=== PATIENT | female | born 1945 | race Caucasian/White ===

== ENCOUNTER 2016-05-26 17:11 | Inpatient (IN) | payer MEDICARE, OTHER ==
[~2016-05-26] VITALS: Ht 162.6 cm; Wt 93.4 kg
[~2016-05-26 17:11] MED LIST: CITA10TA59 PO; GABA300C8 PO; LEV50T PO; PRE5T PO
[2016-05-26 18:12] LABS: Basophils # (auto) 0 uL; Basophils % (auto) 0.4 % (0.0-2.0); Eosinophils # (auto) 0.1 uL; Eosinophils % (auto) 0.7 % (0.0-7.0); Hemoglobin 14.6 g/dL (12.2-16.2); Lymphocytes # (auto) 2.3 uL; Lymphocytes % (auto) 26.4 % (10.0-50.0); Mean Corpuscular Hemoglobin 28.1 pg (28.0-32.0); Mean Corpuscular Hgb Conc. 32.4 g/dL (32.0-36.0); Mean Corpuscular Volume 86.8 fL (80.0-100.0); Mean Platelet Volume 8.5 fL (7.4-10.4); Monocytes % (auto) 11.7 % (0.0-12.0); Neutrophils # (auto) 5.2 uL; Neutrophils % (auto) 60.8 % (37.0-80.0); Platelet Count (auto) 247 10^3/uL (140-450); White Blood Cell 8.6 10^3/uL (4.4-10.8)
[2016-05-26 18:26] LABS: Albumin 3.1 g/dL (3.4-5.0); BUN/Creatinine Ratio 16.7; Bilirubin, Total 0.3 mg/dL (0.2-1.0); Calcium 8.4 mg/dL (8.5-10.1); Total Protein 6.6 g/dL (6.4-8.2)
[2016-05-26] MEDS ORDERED: ALBUTEROL SULF 2.5 MG/0.5ML(0.5%) NEB SOLN NEB STA (18:58)
[2016-05-26] MEDS ORDERED: IPRATROPIUM BROM 0.5 MG/2.5ML INH SOL NEB ONE (19:00)
[2016-05-26] MEDS ORDERED: methylPREDNISolone SOD SUCC 125 MG/2 ML VL IV ONE (19:00)
[2016-05-26] MEDS ORDERED: cefTRIAXone 1GM/50ML D5W 50 ML IV ONE ×2 (19:00→21:15)
[2016-05-26] MEDS ORDERED: DILTIAZEM HCL 25 MG/5 ML VIAL IV ONE (19:15)
[2016-05-26 20:46] LABS: B-Type Natriuretic Peptide 178.41 pg/mL (0-100); Temperature: 22.9 C (20.0-25.0)
[2016-05-26] MEDS ORDERED: DILTIAZEM HCL 120MG ER CAP PO ONE (21:15)
[2016-05-26] MEDS ORDERED: MORPHINE SULFATE 4 MG/ML SYRG IV PRN (21:15)
[2016-05-26] MEDS ORDERED: ONDANSETRON HCL 4 MG/2 ML VIAL IV PRN (21:15)
[2016-05-26] MEDS ORDERED: LACTULOSE 20Gm/30ML SOLN PO PRN (21:15)
[2016-05-26] MEDS ORDERED: DEXTROSE (50%) 50ML SYRG IV PRN (21:15)
[2016-05-26] MEDS ORDERED: POTASSIUM CHL 20 Meq TABLET PO ONE (21:45)
[2016-05-26] MEDS: METOPROLOL TARTRATE 50 MG TAB PO SCH (22:00)
[2016-05-26] MEDS: PRAMIPEXOLE DIHYDROCHLORIDE MO 0.25 MG TAB PO SCH (22:00)
[2016-05-26] MEDS: SUCRALFATE 1 GM TAB PO SCH (22:00)
[2016-05-26] MEDS: DABIGATRAN 75 MG CAP PO SCH (22:00)
[2016-05-26] MEDS: ALBUTEROL SULF 2.5 MG/0.5ML(0.5%) NEB SOLN NEB SCH (22:45)
[2016-05-26] MEDS: IPRATROPIUM BROM 0.5 MG/2.5ML INH SOL NEB SCH (22:45)
[2016-05-27 01:41] VITALS: BP 130/51
[2016-05-27] MEDS: IPRATROPIUM BROM 0.5 MG/2.5ML INH SOL NEB SCH ×6 (02:30→22:25)
[2016-05-27] MEDS: ALBUTEROL SULF 2.5 MG/0.5ML(0.5%) NEB SOLN NEB SCH ×6 (02:30→22:25)
[2016-05-27 04:22] LABS: Basophils # (auto) 0 uL; Basophils % (auto) 0.2 % (0.0-2.0); Eosinophils # (auto) 0 uL; Hematocrit 42.7 % (36.0-46.0); Hemoglobin 13.8 g/dL (12.2-16.2); Lymphocytes # (auto) 0.6 uL; Lymphocytes % (auto) 7.5 % (10.0-50.0); Mean Corpuscular Hemoglobin 27.9 pg (28.0-32.0); Mean Corpuscular Hgb Conc. 32.2 g/dL (32.0-36.0); Mean Corpuscular Volume 86.6 fL (80.0-100.0); Mean Platelet Volume 8.7 fL (7.4-10.4); Monocytes # (auto) 0.1 uL; Monocytes % (auto) 1.3 % (0.0-12.0); Neutrophils # (auto) 7.4 uL; Platelet Count (auto) 268 10^3/uL (140-450); White Blood Cell 8.2 10^3/uL (4.4-10.8)
[2016-05-27 04:34] LABS: Albumin 2.9 g/dL (3.4-5.0); Potassium 4.9 mmol/L (3.5-5.1)
[2016-05-27 04:45] LABS: Bilirubin, Total 0.4 mg/dL (0.2-1.0)
[2016-05-27 04:51] LABS: Total Protein 6.7 g/dL (6.4-8.2)
[2016-05-27 04:52] LABS: BUN/Creatinine Ratio 18.3
[2016-05-27] MEDS: InsuLIN REG 1unit/0.01ml Soln (100units/ml) SC SCH ×3 (06:00→12:42)
[2016-05-27] MEDS: ACCU-CHEK COMFORT CURVE STRIP VI SCH ×6 (06:00→22:39)
[2016-05-27] MEDS: LEVOTHYROXINE SODIUM 112 MCG TAB PO SCH (07:19)
[2016-05-27] MEDS: SUCRALFATE 1 GM TAB PO SCH ×4 (07:19→22:37)
[2016-05-27] MEDS ORDERED: methylPREDNISolone SOD SUCC 125 MG/2 ML VL IV SCH (08:00)
[2016-05-27] MEDS: METOPROLOL TARTRATE 50 MG TAB PO SCH (10:00)
[2016-05-27] MEDS: DILTIAZEM HCL 120MG ER CAP PO SCH (10:00)
[2016-05-27] MEDS ORDERED: ENOXAPARIN SOD 30 MG/0.3 ML SYRINGE SC SCH (10:00)
[2016-05-27] MEDS ORDERED: PANTOPRAZOLE SODIUM 40 MG/10 ML VIAL IV SCH (10:00)
[2016-05-27] MEDS: DABIGATRAN 75 MG CAP PO SCH ×2 (10:00→22:00)
[2016-05-27] MEDS: CITALOPRAM HYDROBR 20 MG TAB PO SCH (10:02)
[2016-05-27] MEDS: GABAPENTIN 300 MG CAP PO SCH (10:02)
[2016-05-27 13:20] VITALS: BP 108/64
[2016-05-27 13:59] VITALS: BP_SYST 108; BP_SYST 110; BP_DIAS 64; BP_DIAS 74
[2016-05-27] MEDS ORDERED: AZITHROMYCIN 250 MG TAB PO ONE (15:15)
[2016-05-27 16:00] VITALS: BP 107/64
[2016-05-27] MEDS ORDERED: INSUINJ2 SC (17:35)
[2016-05-27] MEDS ORDERED: INSREG3 SC (17:35)
[2016-05-27] MEDS ORDERED: InsuLIN REG 1unit/0.01ml Soln (100units/ml) SC SCH ×2 (18:00→22:00)
[2016-05-27] MEDS ORDERED: InsuLIN REG 1unit/0.01ml Soln (100units/ml) SC ONE ×2 (18:00→19:15)
[2016-05-27] MEDS ORDERED: DEXTROSE (50%) 50ML SYRG IV PRN ×2 (18:00→23:15)
[2016-05-27] MEDS: cefTRIAXone 1GM/50ML D5W 50 ML IV SCH (21:06)
[2016-05-27 21:30] VITALS: BP 114/60
[2016-05-27] MEDS: PRAMIPEXOLE DIHYDROCHLORIDE MO 0.25 MG TAB PO SCH (22:38)
[2016-05-27] MEDS: INSULIN NPH Isophane (HUMAN) 1unit/0.01ml Susp(100units/ml) SC SCH (23:21)
[2016-05-27 23:32] LABS: Urine RBC None Seen /hpf (0 - 4)
[2016-05-27 23:49] LABS: Urine Bilirubin Negative (Negative); Urine Blood Negative /uL (Negative); Urine Color Yellow (Yellow); Urine Glucose 4+ mg/dL (Normal); Urine Ketone Negative (Negative); Urine Nitrite Negative (Negative); Urine Urobilinogen Normal (Negative)
[2016-05-28] MEDS: IPRATROPIUM BROM 0.5 MG/2.5ML INH SOL NEB SCH ×6 (01:51→22:55)
[2016-05-28] MEDS: ALBUTEROL SULF 2.5 MG/0.5ML(0.5%) NEB SOLN NEB SCH ×6 (01:51→22:55)
[2016-05-28] MEDS: ACCU-CHEK COMFORT CURVE STRIP VI SCH ×5 (02:01→22:00)
[2016-05-28] MEDS: InsuLIN REG 1unit/0.01ml Soln (100units/ml) SC SCH ×4 (02:02→17:28)
[2016-05-28 04:56] VITALS: BP 115/56
[2016-05-28] MEDS: LEVOTHYROXINE SODIUM 112 MCG TAB PO SCH (06:18)
[2016-05-28] MEDS: SUCRALFATE 1 GM TAB PO SCH (06:18)
[2016-05-28] MEDS ORDERED: methylPREDNISolone SOD SUCC 125 MG/2 ML VL IV SCH (08:00)
[2016-05-28 08:30] VITALS: BP 128/59
[2016-05-28] MEDS: methylPREDNISolone SOD SUCC 40 MG/ML VL IV SCH (08:39)
[2016-05-28] MEDS: AZITHROMYCIN 250 MG TAB PO SCH (08:40)
[2016-05-28] MEDS: PANTOPRAZOLE 40 MG TAB PO SCH (08:40)
[2016-05-28] MEDS: DILTIAZEM HCL 120MG ER CAP PO SCH (08:41)
[2016-05-28] MEDS: DABIGATRAN 75 MG CAP PO SCH (08:41)
[2016-05-28] MEDS: GABAPENTIN 300 MG CAP PO SCH (08:41)
[2016-05-28] MEDS: CITALOPRAM HYDROBR 20 MG TAB PO SCH (08:44)
[2016-05-28] MEDS ORDERED: ACCU-CHEK COMFORT CURVE STRIP VI SCH (10:00)
[2016-05-28] MEDS ORDERED: InsuLIN REG 1unit/0.01ml Soln (100units/ml) SC SCH ×2 (10:00→22:00)
[2016-05-28] MEDS ORDERED: ENOXAPARIN SOD 40 MG/0.4 ML SYRINGE SC SCH (10:00)
[2016-05-28] MEDS ORDERED: FUROSEMIDE 20 MG/2 ML VIAL IV ONE (11:15)
[2016-05-28] MEDS ORDERED: DEXTROSE (50%) 50ML SYRG IV PRN (11:15)
[2016-05-28] MEDS ORDERED: POTASSIUM CHL 20 Meq TABLET PO ONE (11:15)
[2016-05-28] MEDS: NYSTATIN (MOUTH-THROAT) 500,000 UNITS/5 ML SUSP MT SCH ×3 (11:49→21:12)
[2016-05-28 13:00] VITALS: BP 114/53
[2016-05-28 16:58] VITALS: BP 115/52
[2016-05-28] MEDS ORDERED: PATIENTS OWN MEDICATION (xarelto 20 MG) PO SCH (18:00)
[2016-05-28] MEDS ORDERED: RIVAROXABAN 20 MG TAB PO SCH (18:00)
[2016-05-28] MEDS: cefTRIAXone 1GM/50ML D5W 50 ML IV SCH (21:11)
[2016-05-28] MEDS: PRAMIPEXOLE DIHYDROCHLORIDE MO 0.25 MG TAB PO SCH (21:14)
[2016-05-28 21:49] VITALS: BP 128/63
[2016-05-28] MEDS ORDERED: CITALOPRAM HYDROBR 20 MG TAB PO SCH (22:00)
[2016-05-28] MEDS ORDERED: GABAPENTIN 300 MG CAP PO SCH (22:00)
[2016-05-28] MEDS: INSULIN NPH Isophane (HUMAN) 1unit/0.01ml Susp(100units/ml) SC SCH (22:28)
[2016-05-29] MEDS: IPRATROPIUM BROM 0.5 MG/2.5ML INH SOL NEB SCH ×3 (02:35→10:05)
[2016-05-29] MEDS: ALBUTEROL SULF 2.5 MG/0.5ML(0.5%) NEB SOLN NEB SCH ×3 (02:35→10:05)
[2016-05-29 05:23] VITALS: BP 118/86
[2016-05-29] MEDS: LEVOTHYROXINE SODIUM 112 MCG TAB PO SCH (06:04)
[2016-05-29] MEDS: NYSTATIN (MOUTH-THROAT) 500,000 UNITS/5 ML SUSP MT SCH (06:04)
[2016-05-29] MEDS: InsuLIN REG 1unit/0.01ml Soln (100units/ml) SC SCH (06:25)
[2016-05-29] MEDS: ACCU-CHEK COMFORT CURVE STRIP VI SCH (06:25)
[2016-05-29 07:19] LABS: BUN/Creatinine Ratio 32.1; Calcium 9.3 mg/dL (8.5-10.1); Potassium 4.6 mmol/L (3.5-5.1)
[2016-05-29 09:00] VITALS: BP 119/65
[2016-05-29] MEDS: methylPREDNISolone SOD SUCC 40 MG/ML VL IV SCH (09:14)
[2016-05-29] MEDS: AZITHROMYCIN 250 MG TAB PO SCH (09:18)
[2016-05-29] MEDS: PANTOPRAZOLE 40 MG TAB PO SCH (09:18)
[2016-05-29] MEDS ORDERED: DILTIAZEM HCL 180MG ER CAP PO SCH (10:00)
[2016-05-29 10:46] VITALS: BP 119/65
== END 2016-05-29 11:45 | disposition home or self-care (01) | DRG 189 ==
LOC: EDUNIT# 17:11 → ER 17:33 → TELE 17:34 → TELE-CENTR 05-27 13:57
PROVIDERS: ADMIT Family Medicine; ATTEND Internal Medicine
DX: J96.20 Acute and chronic respiratory failure, unspecified whether with hypoxia or hypercapnia (principal); J44.1 Chronic obstructive pulmonary disease with (acute) exacerbation; D68.69 Other thrombophilia; I48.91 Unspecified atrial fibrillation; I12.9 Hypertensive chronic kidney disease with stage 1 through stage 4 chronic kidney disease, or unspecified chronic kidney disease; N18.3 Chronic kidney disease, stage 3 (moderate); F17.210 Nicotine dependence, cigarettes, uncomplicated; E87.6 Hypokalemia; E11.22 Type 2 diabetes mellitus with diabetic chronic kidney disease; E11.42 Type 2 diabetes mellitus with diabetic polyneuropathy; E66.01 Morbid (severe) obesity due to excess calories; E11.65 Type 2 diabetes mellitus with hyperglycemia; Z79.01 Long term (current) use of anticoagulants; Z80.1 Family history of malignant neoplasm of trachea, bronchus and lung; Z82.3 Family history of stroke; Z82.49 Family history of ischemic heart disease and other diseases of the circulatory system; Z83.3 Family history of diabetes mellitus; Z86.73 Personal history of transient ischemic attack (TIA), and cerebral infarction without residual deficits; Z99.81 Dependence on supplemental oxygen; Z90.49 Acquired absence of other specified parts of digestive tract; Z98.890 Other specified postprocedural states; Z68.35 Body mass index [BMI] 35.0-35.9, adult
CPT/HCPCS: 36415; 71010; 80048; 80053; 80061; 81001; 82962; 83036; 83605; 83735; 83880; 84484; 85025; 87040; 93005; 94640; 96372; 96374; 96375; C9113; J0696; J1815

== ENCOUNTER 2016-06-05 16:38 | Inpatient (IN) | payer MEDICARE, OTHER ==
[~2016-06-05] VITALS: Ht 162.6 cm; Wt 98.3 kg
[~2016-06-05 16:38] MED LIST changes: +INSREG3 SC; +INSUINJ2 SC
[2016-06-05] MEDS ORDERED: ACETAMINOPHEN 500 MG TAB PO PRN (18:15)
[2016-06-05] MEDS ORDERED: TEMAZEPAM 15 MG CAP PO PRN (18:15)
[2016-06-05] MEDS ORDERED: NITROGLYCERIN 0.4 MG SL TAB SL PRN (18:15)
[2016-06-05] MEDS ORDERED: MORPHINE SULF INJ 2 MG/ML SYRINGE 1ML IV PRN ×2 (18:15)
[2016-06-05] MEDS ORDERED: HYDROcodone-ACET 5/325MG TAB PO PRN (18:15)
[2016-06-05] MEDS ORDERED: LORazepam 0.5 MG TAB PO PRN (18:15)
[2016-06-05] MEDS ORDERED: PROMETHAZINE HCL 25 MG/ML 1ML IV PRN (18:15)
[2016-06-05] MEDS ORDERED: ALBUTEROL SULF 2.5 MG/0.5ML(0.5%) NEB SOLN NEB PRN (18:15)
[2016-06-05] MEDS ORDERED: LACTULOSE 20Gm/30ML SOLN PO PRN (18:15)
[2016-06-05] MEDS ORDERED: DEXTROSE (50%) 50ML SYRG IV PRN (18:15)
[2016-06-05 18:45] VITALS: BP 138/86
[2016-06-05] MEDS ORDERED: OSELTAMIVIR 75 MG CAP PO ONE (18:45)
[2016-06-05 19:10] LABS: Basophils # (auto) 0 uL; Eosinophils # (auto) 0 uL; Eosinophils % (auto) 0.1 % (0.0-7.0); Hematocrit 42.6 % (36.0-46.0); Lymphocytes # (auto) 0.9 uL; Mean Corpuscular Hemoglobin 28.3 pg (28.0-32.0); Mean Corpuscular Hgb Conc. 32.8 g/dL (32.0-36.0); Mean Corpuscular Volume 86.2 fL (80.0-100.0); Mean Platelet Volume 8.9 fL (7.4-10.4); Monocytes # (auto) 0.5 uL; Monocytes % (auto) 5.2 % (0.0-12.0); Neutrophils # (auto) 8.5 uL; Neutrophils % (auto) 85.7 % (37.0-80.0); Platelet Count (auto) 293 10^3/uL (140-450); White Blood Cell 9.9 10^3/uL (4.4-10.8)
[2016-06-05 19:25] LABS: Albumin 3.2 g/dL (3.4-5.0); Calcium 8.2 mg/dL (8.5-10.1); Potassium 4.7 mmol/L (3.5-5.1)
[2016-06-05 19:28] LABS: Bilirubin, Total 0.3 mg/dL (0.2-1.0); Total Protein 6.8 g/dL (6.4-8.2)
[2016-06-05] MEDS: SODIUM CHLORIDE 0.9% 1,000 ML IV SCH (20:14)
[2016-06-05] MEDS: DOXYCYCLINE HYC 100MG/250ML 250 ML IV SCH (20:16)
[2016-06-05 22:00] VITALS: BP 159/63
[2016-06-05] MEDS ORDERED: INSULIN NPH Isophane (HUMAN) 1unit/0.01ml Susp(100units/ml) SC SCH (22:00)
[2016-06-05] MEDS: InsuLIN REG 1unit/0.01ml Soln (100units/ml) SC SCH (22:00)
[2016-06-05] MEDS: ACCU-CHEK COMFORT CURVE STRIP VI SCH (22:00)
[2016-06-05] MEDS: RIVAROXABAN 20 MG TAB PO SCH (22:51)
[2016-06-05] MEDS: GABAPENTIN 300 MG CAP PO SCH (22:52)
[2016-06-05] MEDS: methylPREDNISolone SOD SUCC 40 MG/ML VL IV SCH (23:41)
[2016-06-06] MEDS: ALBUTEROL SULF 2.5 MG/0.5ML(0.5%) NEB SOLN NEB SCH ×4 (01:40→18:33)
[2016-06-06] MEDS: IPRATROPIUM BROM 0.5 MG/2.5ML INH SOL NEB SCH ×4 (01:40→18:33)
[2016-06-06 05:00] VITALS: BP 128/62
[2016-06-06] MEDS: methylPREDNISolone SOD SUCC 40 MG/ML VL IV SCH ×3 (05:58→18:09)
[2016-06-06] MEDS: DOXYCYCLINE HYC 100MG/250ML 250 ML IV SCH ×2 (06:32→18:09)
[2016-06-06] MEDS: InsuLIN REG 1unit/0.01ml Soln (100units/ml) SC SCH ×3 (06:36→17:44)
[2016-06-06] MEDS: LEVOTHYROXINE SODIUM 112 MCG TAB PO SCH (06:37)
[2016-06-06] MEDS: ACCU-CHEK COMFORT CURVE STRIP VI SCH ×4 (06:37→21:46)
[2016-06-06] MEDS: SODIUM CHLORIDE 0.9% 1,000 ML IV SCH ×2 (07:31→18:14)
[2016-06-06 08:00] VITALS: BP 135/74
[2016-06-06] MEDS ORDERED: DEXTROSE (50%) 50ML SYRG IV PRN (09:30)
[2016-06-06] MEDS: DILTIAZEM HCL 120MG ER CAP PO SCH (09:39)
[2016-06-06] MEDS: CITALOPRAM HYDROBR 20 MG TAB PO SCH (09:47)
[2016-06-06] MEDS ORDERED: OSELTAMIVIR 75 MG CAP PO SCH (10:00)
[2016-06-06] MEDS: ENOXAPARIN SOD 40 MG/0.4 ML SYRINGE SC SCH (12:43)
[2016-06-06 13:00] VITALS: BP 143/70
[2016-06-06 16:44] VITALS: BP 132/55
[2016-06-06] MEDS: RIVAROXABAN 20 MG TAB PO SCH (18:14)
[2016-06-06 21:20] VITALS: BP 132/55
[2016-06-06] MEDS: GABAPENTIN 300 MG CAP PO SCH (21:45)
[2016-06-06 22:00] VITALS: BP 150/69
[2016-06-06] MEDS: BUDESONIDE (INHALATION) 0.5 MG/2 ML NEB NEB SCH (22:00)
[2016-06-06] MEDS ORDERED: INSULIN DETEMIR(LEVEMIR) 1unit/0.01ml Soln (100units/ml) SC SCH (22:00)
[2016-06-06] MEDS ORDERED: InsuLIN REG 1unit/0.01ml Soln (100units/ml) SC SCH (22:00)
[2016-06-06] MEDS: INSULIN DETEMIR(LEVEMIR) 1unit/0.01ml Soln (100units/ml) SC SCH (22:23)
[2016-06-07] MEDS: methylPREDNISolone SOD SUCC 40 MG/ML VL IV SCH ×5 (00:09→23:53)
[2016-06-07] MEDS ORDERED: fentaNYL W ROPIVACAINE 0 ML EPI ONE (01:47)
[2016-06-07] MEDS ORDERED: fentaNYL CITRATE 100 MCG/2 ML VL ONE (01:47)
[2016-06-07] MEDS ORDERED: LIDOCAINE HCL 2 %PF INJ 10ML AMP IJ ONE (01:47)
[2016-06-07] MEDS ORDERED: ePHEDrine SULFATE 50 MG/ML AMP ONE (01:47)
[2016-06-07 05:00] VITALS: BP 147/77
[2016-06-07] MEDS: DOXYCYCLINE HYC 100MG/250ML 250 ML IV SCH ×2 (06:07→17:50)
[2016-06-07] MEDS: IPRATROPIUM BROM 0.5 MG/2.5ML INH SOL NEB SCH ×4 (06:12→20:03)
[2016-06-07] MEDS: BUDESONIDE (INHALATION) 0.5 MG/2 ML NEB NEB SCH ×2 (06:12→20:04)
[2016-06-07] MEDS: ALBUTEROL SULF 2.5 MG/0.5ML(0.5%) NEB SOLN NEB SCH ×4 (06:12→20:03)
[2016-06-07] MEDS: InsuLIN REG 1unit/0.01ml Soln (100units/ml) SC SCH ×4 (06:43→22:00)
[2016-06-07] MEDS: ACCU-CHEK COMFORT CURVE STRIP VI SCH ×4 (06:43→22:35)
[2016-06-07] MEDS: LEVOTHYROXINE SODIUM 112 MCG TAB PO SCH (06:43)
[2016-06-07 09:00] VITALS: BP 115/54
[2016-06-07] MEDS: SODIUM CHLORIDE 0.9% 1,000 ML IV SCH ×2 (10:11→23:31)
[2016-06-07] MEDS: CITALOPRAM HYDROBR 20 MG TAB PO SCH (10:41)
[2016-06-07] MEDS: ENOXAPARIN SOD 40 MG/0.4 ML SYRINGE SC SCH (10:42)
[2016-06-07] MEDS: DILTIAZEM HCL 120MG ER CAP PO SCH (10:43)
[2016-06-07] MEDS: MONTELUKAST SODIUM 10 MG TAB PO SCH (10:47)
[2016-06-07 13:11] VITALS: BP 134/71
[2016-06-07] MEDS: RIVAROXABAN 20 MG TAB PO SCH (19:06)
[2016-06-07] MEDS ORDERED: SODIUM CHLORIDE 0.9% 1,000 ML IV ONE (21:45)
[2016-06-07] MEDS ORDERED: DEXTROSE (50%) 50ML SYRG IV PRN ×2 (21:45)
[2016-06-07 22:00] VITALS: BP 140/65
[2016-06-07] MEDS ORDERED: InsuLIN REG 1unit/0.01ml Soln (100units/ml) SC SCH (22:00)
[2016-06-07] MEDS ORDERED: InsuLIN REG 1unit/0.01ml Soln (100units/ml) SC ONE (22:00)
[2016-06-07] MEDS ORDERED: ACCU-CHEK COMFORT CURVE STRIP VI SCH (22:00)
[2016-06-07] MEDS: GABAPENTIN 300 MG CAP PO SCH (22:28)
[2016-06-07] MEDS: PRAMIPEXOLE DIHYDROCHLORIDE MO 0.25 MG TAB PO SCH (22:28)
[2016-06-07] MEDS: INSULIN DETEMIR(LEVEMIR) 1unit/0.01ml Soln (100units/ml) SC SCH (22:34)
[2016-06-08] MEDS ORDERED: InsuLIN REG 1unit/0.01ml Soln (100units/ml) SC ONE (00:15)
[2016-06-08 05:10] LABS: Basophils # (auto) 0 uL; Basophils % (auto) 0.2 % (0.0-2.0); Eosinophils # (auto) 0 uL; Hematocrit 39.3 % (36.0-46.0); Hemoglobin 12.6 g/dL (12.2-16.2); Lymphocytes # (auto) 0.7 uL; Lymphocytes % (auto) 4.7 % (10.0-50.0); Mean Corpuscular Hemoglobin 27.6 pg (28.0-32.0); Mean Corpuscular Hgb Conc. 32.1 g/dL (32.0-36.0); Mean Platelet Volume 8.6 fL (7.4-10.4); Monocytes # (auto) 0.7 uL; Monocytes % (auto) 4.5 % (0.0-12.0); Neutrophils # (auto) 13.6 uL; Neutrophils % (auto) 90.6 % (37.0-80.0); Platelet Count (auto) 261 10^3/uL (140-450); Red Cell Distribution Width 14.6 % (11.6-16.0); SUSPECT VIEW TRANSMISSION
[2016-06-08 05:30] LABS: Potassium 3.6 mmol/L (3.5-5.1)
[2016-06-08 05:34] LABS: Albumin 2.7 g/dL (3.4-5.0); BUN/Creatinine Ratio 35.8; Calcium 7.9 mg/dL (8.5-10.1)
[2016-06-08 05:36] LABS: Bilirubin, Total 0.2 mg/dL (0.2-1.0)
[2016-06-08 05:50] VITALS: BP 127/63
[2016-06-08] MEDS: methylPREDNISolone SOD SUCC 40 MG/ML VL IV SCH (06:08)
[2016-06-08] MEDS: DOXYCYCLINE HYC 100MG/250ML 250 ML IV SCH ×2 (06:08→18:13)
[2016-06-08] MEDS: ALBUTEROL SULF 2.5 MG/0.5ML(0.5%) NEB SOLN NEB SCH ×5 (06:26→22:27)
[2016-06-08] MEDS: ACCU-CHEK COMFORT CURVE STRIP VI SCH ×4 (06:36→22:20)
[2016-06-08] MEDS: InsuLIN REG 1unit/0.01ml Soln (100units/ml) SC SCH ×4 (06:36→22:20)
[2016-06-08] MEDS: IPRATROPIUM BROM 0.5 MG/2.5ML INH SOL NEB SCH ×5 (06:40→22:27)
[2016-06-08] MEDS: LEVOTHYROXINE SODIUM 112 MCG TAB PO SCH (06:40)
[2016-06-08] MEDS: BUDESONIDE (INHALATION) 0.5 MG/2 ML NEB NEB SCH ×2 (06:40→22:27)
[2016-06-08] MEDS ORDERED: InsuLIN REG 1unit/0.01ml Soln (100units/ml) SC SCH (07:00)
[2016-06-08 08:39] VITALS: BP 130/69
[2016-06-08] MEDS: CITALOPRAM HYDROBR 20 MG TAB PO SCH (10:15)
[2016-06-08] MEDS: MONTELUKAST SODIUM 10 MG TAB PO SCH (10:15)
[2016-06-08] MEDS: ENOXAPARIN SOD 40 MG/0.4 ML SYRINGE SC SCH (10:16)
[2016-06-08] MEDS: DILTIAZEM HCL 120MG ER CAP PO SCH (10:16)
[2016-06-08 12:33] VITALS: BP 148/77
[2016-06-08] MEDS: SODIUM CHLORIDE 0.9% 1,000 ML IV SCH ×2 (12:51→22:38)
[2016-06-08 16:37] VITALS: BP 126/68
[2016-06-08] MEDS: RIVAROXABAN 20 MG TAB PO SCH (18:12)
[2016-06-08 22:00] VITALS: BP 147/75
[2016-06-08] MEDS: GABAPENTIN 300 MG CAP PO SCH (22:19)
[2016-06-08] MEDS: PRAMIPEXOLE DIHYDROCHLORIDE MO 0.25 MG TAB PO SCH (22:19)
[2016-06-08] MEDS: INSULIN DETEMIR(LEVEMIR) 1unit/0.01ml Soln (100units/ml) SC SCH (22:20)
[2016-06-09 06:08] VITALS: BP 133/64
[2016-06-09] MEDS: InsuLIN REG 1unit/0.01ml Soln (100units/ml) SC SCH ×4 (06:26→22:33)
[2016-06-09] MEDS: ACCU-CHEK COMFORT CURVE STRIP VI SCH ×4 (06:26→22:00)
[2016-06-09] MEDS: DOXYCYCLINE HYC 100MG/250ML 250 ML IV SCH ×2 (06:27→18:17)
[2016-06-09] MEDS: LEVOTHYROXINE SODIUM 112 MCG TAB PO SCH (06:28)
[2016-06-09] MEDS: ALBUTEROL SULF 2.5 MG/0.5ML(0.5%) NEB SOLN NEB SCH ×5 (07:33→22:27)
[2016-06-09] MEDS: IPRATROPIUM BROM 0.5 MG/2.5ML INH SOL NEB SCH ×5 (07:33→22:27)
[2016-06-09] MEDS: BUDESONIDE (INHALATION) 0.5 MG/2 ML NEB NEB SCH ×2 (07:34→18:22)
[2016-06-09 08:14] VITALS: BP 124/54
[2016-06-09] MEDS: predniSONE 20 MG TAB PO SCH (10:00)
[2016-06-09] MEDS: MONTELUKAST SODIUM 10 MG TAB PO SCH (10:46)
[2016-06-09] MEDS: ENOXAPARIN SOD 40 MG/0.4 ML SYRINGE SC SCH (10:47)
[2016-06-09] MEDS: CITALOPRAM HYDROBR 20 MG TAB PO SCH (10:47)
[2016-06-09] MEDS: DILTIAZEM HCL 120MG ER CAP PO SCH (10:49)
[2016-06-09 13:20] VITALS: BP 136/60
[2016-06-09] MEDS: SODIUM CHLORIDE 0.9% 1,000 ML IV SCH (15:31)
[2016-06-09 16:59] VITALS: BP 157/64
[2016-06-09] MEDS: RIVAROXABAN 20 MG TAB PO SCH (18:17)
[2016-06-09] MEDS: NYSTATIN (MOUTH-THROAT) 500,000 UNITS/5 ML SUSP MT SCH ×2 (18:17→22:32)
[2016-06-09 20:56] VITALS: BP 138/74
[2016-06-09 21:50] VITALS: BP 148/68
[2016-06-09] MEDS: PRAMIPEXOLE DIHYDROCHLORIDE MO 0.25 MG TAB PO SCH (22:32)
[2016-06-09] MEDS: GABAPENTIN 300 MG CAP PO SCH (22:32)
[2016-06-09] MEDS: INSULIN DETEMIR(LEVEMIR) 1unit/0.01ml Soln (100units/ml) SC SCH (22:33)
[2016-06-10 04:58] VITALS: BP 147/62
[2016-06-10] MEDS: IPRATROPIUM BROM 0.5 MG/2.5ML INH SOL NEB SCH ×4 (05:42→19:02)
[2016-06-10] MEDS: BUDESONIDE (INHALATION) 0.5 MG/2 ML NEB NEB SCH ×2 (05:42→19:02)
[2016-06-10] MEDS: ALBUTEROL SULF 2.5 MG/0.5ML(0.5%) NEB SOLN NEB SCH ×4 (05:42→19:02)
[2016-06-10] MEDS: NYSTATIN (MOUTH-THROAT) 500,000 UNITS/5 ML SUSP MT SCH ×4 (06:25→22:00)
[2016-06-10] MEDS: DOXYCYCLINE HYC 100MG/250ML 250 ML IV SCH (06:25)
[2016-06-10] MEDS: SODIUM CHLORIDE 0.9% 1,000 ML IV SCH ×2 (06:25→18:11)
[2016-06-10] MEDS: LEVOTHYROXINE SODIUM 112 MCG TAB PO SCH (06:26)
[2016-06-10] MEDS: InsuLIN REG 1unit/0.01ml Soln (100units/ml) SC SCH ×3 (06:32→18:35)
[2016-06-10] MEDS: ACCU-CHEK COMFORT CURVE STRIP VI SCH ×3 (06:32→17:00)
[2016-06-10 07:19] VITALS: BP 137/82
[2016-06-10] MEDS ORDERED: LIDOCAINE VISCOUS 2% 15ML UD ONE (07:34)
[2016-06-10] MEDS ORDERED: SODIUM CHLORIDE LOCK 10 ML ONE (07:34)
[2016-06-10] MEDS ORDERED: fentaNYL CITRATE 100 MCG/2 ML VL ONE (07:35)
[2016-06-10] MEDS ORDERED: diphenhdrAMINE HCL 50 MG/1 ML VL ONE (07:35)
[2016-06-10] MEDS ORDERED: MIDAZOLAM HCL 5 MG/ML-1ML VIAL ONE (07:35)
[2016-06-10] MEDS ORDERED: FLUMAZENIL 0.1 MG/ML INJ 10ML MDV IV ONE (07:41)
[2016-06-10] MEDS ORDERED: NALOXONE HCL 0.4 MG/ML VIAL ONE (07:41)
[2016-06-10 09:00] VITALS: BP 142/67
[2016-06-10] MEDS: predniSONE 20 MG TAB PO SCH ×2 (10:00→14:14)
[2016-06-10] MEDS: CITALOPRAM HYDROBR 20 MG TAB PO SCH (10:00)
[2016-06-10] MEDS: MONTELUKAST SODIUM 10 MG TAB PO SCH (10:00)
[2016-06-10] MEDS: ENOXAPARIN SOD 40 MG/0.4 ML SYRINGE SC SCH (10:00)
[2016-06-10] MEDS: DILTIAZEM HCL 120MG ER CAP PO SCH (10:04)
[2016-06-10 10:59] LABS: INR 1.03 (0.9-1.15); Partial Thromboplastin Time 25.4 sec (22.64-33.71); Prothrombin Time 10.6 sec (9.37-12.3)
[2016-06-10 12:06] VITALS: BP 115/57
[2016-06-10] MEDS ORDERED: MIDAZOLAM HCL 5 MG/ML-1ML VIAL IV ONE ×2 (12:54→12:57)
[2016-06-10] MEDS ORDERED: LIDOCAINE VISCOUS 2% 15ML UD MT ONE (12:54)
[2016-06-10] MEDS ORDERED: fentaNYL CITRATE 100 MCG/2 ML VL IV ONE ×2 (12:54→12:57)
[2016-06-10] MEDS: LEVOFLOXACIN 500 MG TAB PO SCH (14:14)
[2016-06-10 16:57] VITALS: BP 129/60
[2016-06-10] MEDS: RIVAROXABAN 20 MG TAB PO SCH (18:33)
[2016-06-10 22:00] VITALS: BP 115/63
[2016-06-10] MEDS: INSULIN DETEMIR(LEVEMIR) 1unit/0.01ml Soln (100units/ml) SC SCH (22:00)
[2016-06-10] MEDS: PRAMIPEXOLE DIHYDROCHLORIDE MO 0.25 MG TAB PO SCH (22:00)
[2016-06-10] MEDS: GABAPENTIN 300 MG CAP PO SCH (22:00)
[2016-06-10] MEDS ORDERED: DEXTROSE (50%) 50ML SYRG IV PRN (23:00)
[2016-06-11] MEDS ORDERED: ACCU-CHEK COMFORT CURVE STRIP VI SCH
[2016-06-11] MEDS ORDERED: InsuLIN REG 1unit/0.01ml Soln (100units/ml) SC SCH
[2016-06-11] MEDS ORDERED: InsuLIN REG 1unit/0.01ml Soln (100units/ml) ONE (00:23)
[2016-06-11] MEDS ORDERED: DEXTROSE (50%) 50ML SYRG IV PRN ×2 (00:30→10:30)
[2016-06-11] MEDS: ACCU-CHEK COMFORT CURVE STRIP VI SCH ×5 (03:52→22:39)
[2016-06-11] MEDS: InsuLIN REG 1unit/0.01ml Soln (100units/ml) SC SCH ×5 (03:55→22:51)
[2016-06-11] MEDS: SODIUM CHLORIDE 0.9% 1,000 ML IV SCH ×2 (03:56→22:40)
[2016-06-11 05:29] VITALS: BP 143/82
[2016-06-11] MEDS: NYSTATIN (MOUTH-THROAT) 500,000 UNITS/5 ML SUSP MT SCH ×4 (06:24→22:38)
[2016-06-11] MEDS: LEVOTHYROXINE SODIUM 112 MCG TAB PO SCH ×2 (06:25→09:39)
[2016-06-11] MEDS: IPRATROPIUM BROM 0.5 MG/2.5ML INH SOL NEB SCH ×4 (06:51→19:29)
[2016-06-11] MEDS: ALBUTEROL SULF 2.5 MG/0.5ML(0.5%) NEB SOLN NEB SCH ×4 (06:51→19:29)
[2016-06-11] MEDS: BUDESONIDE (INHALATION) 0.5 MG/2 ML NEB NEB SCH ×2 (06:52→19:30)
[2016-06-11 09:00] VITALS: BP 148/62
[2016-06-11] MEDS: LEVOFLOXACIN 500 MG TAB PO SCH (09:39)
[2016-06-11] MEDS: CITALOPRAM HYDROBR 20 MG TAB PO SCH (09:39)
[2016-06-11] MEDS: predniSONE 20 MG TAB PO SCH (09:39)
[2016-06-11] MEDS: ENOXAPARIN SOD 40 MG/0.4 ML SYRINGE SC SCH (09:39)
[2016-06-11] MEDS: MONTELUKAST SODIUM 10 MG TAB PO SCH (09:40)
[2016-06-11] MEDS: DILTIAZEM HCL 120MG ER CAP PO SCH (09:41)
[2016-06-11] MEDS: INSULIN DETEMIR(LEVEMIR) 1unit/0.01ml Soln (100units/ml) SC SCH ×2 (10:08→22:51)
[2016-06-11 13:00] VITALS: BP 135/87
[2016-06-11 16:43] VITALS: BP 148/84
[2016-06-11] MEDS: RIVAROXABAN 20 MG TAB PO SCH (18:00)
[2016-06-11 20:28] VITALS: BP 148/84
[2016-06-11 22:00] VITALS: BP 135/62
[2016-06-11] MEDS ORDERED: MICONAZOLE NITRATE 2 % VAGINAL CREAM 45 GM PV SCH (22:00)
[2016-06-11] MEDS: PRAMIPEXOLE DIHYDROCHLORIDE MO 0.25 MG TAB PO SCH (22:38)
[2016-06-11] MEDS: GABAPENTIN 300 MG CAP PO SCH (22:38)
[2016-06-12 05:31] VITALS: BP 136/61
[2016-06-12] MEDS: IPRATROPIUM BROM 0.5 MG/2.5ML INH SOL NEB SCH ×4 (06:04→19:30)
[2016-06-12] MEDS: ALBUTEROL SULF 2.5 MG/0.5ML(0.5%) NEB SOLN NEB SCH ×4 (06:04→19:30)
[2016-06-12] MEDS: NYSTATIN (MOUTH-THROAT) 500,000 UNITS/5 ML SUSP MT SCH ×3 (06:31→17:41)
[2016-06-12] MEDS: ACCU-CHEK COMFORT CURVE STRIP VI SCH ×4 (06:32→21:53)
[2016-06-12] MEDS: InsuLIN REG 1unit/0.01ml Soln (100units/ml) SC SCH ×4 (06:50→22:09)
[2016-06-12 09:00] VITALS: BP_SYST 113; BP_SYST 94; BP_DIAS 47; BP_DIAS 69
[2016-06-12] MEDS: BUDESONIDE (INHALATION) 0.5 MG/2 ML NEB NEB SCH ×2 (09:59→19:30)
[2016-06-12] MEDS: MONTELUKAST SODIUM 10 MG TAB PO SCH (10:13)
[2016-06-12] MEDS: ENOXAPARIN SOD 40 MG/0.4 ML SYRINGE SC SCH (10:13)
[2016-06-12] MEDS: DILTIAZEM HCL 120MG ER CAP PO SCH (10:15)
[2016-06-12] MEDS: LEVOFLOXACIN 500 MG TAB PO SCH (10:15)
[2016-06-12] MEDS: SODIUM CHLORIDE 0.9% 1,000 ML IV SCH ×2 (10:16→23:31)
[2016-06-12] MEDS: CITALOPRAM HYDROBR 20 MG TAB PO SCH (10:16)
[2016-06-12] MEDS: predniSONE 20 MG TAB PO SCH (10:16)
[2016-06-12] MEDS: INSULIN DETEMIR(LEVEMIR) 1unit/0.01ml Soln (100units/ml) SC SCH (10:26)
[2016-06-12 13:36] VITALS: BP 143/66
[2016-06-12 17:22] VITALS: BP 116/64
[2016-06-12] MEDS: RIVAROXABAN 20 MG TAB PO SCH (17:41)
[2016-06-12] MEDS: GABAPENTIN 300 MG CAP PO SCH (21:56)
[2016-06-12] MEDS: PRAMIPEXOLE DIHYDROCHLORIDE MO 0.25 MG TAB PO SCH (21:56)
[2016-06-12] MEDS ORDERED: MICONAZOLE NITRATE 2 % VAGINAL CREAM 45 GM PV SCH (22:00)
[2016-06-12 22:09] VITALS: BP 136/66
[2016-06-13 05:28] VITALS: BP 135/67
[2016-06-13] MEDS: ACCU-CHEK COMFORT CURVE STRIP VI SCH ×3 (06:30→17:00)
[2016-06-13] MEDS: InsuLIN REG 1unit/0.01ml Soln (100units/ml) SC SCH ×3 (06:31→17:00)
[2016-06-13] MEDS: LEVOTHYROXINE SODIUM 112 MCG TAB PO SCH (06:33)
[2016-06-13] MEDS ORDERED: INSULIN DETEMIR(LEVEMIR) 1unit/0.01ml Soln (100units/ml) SC SCH (07:00)
[2016-06-13] MEDS: ALBUTEROL SULF 2.5 MG/0.5ML(0.5%) NEB SOLN NEB SCH ×3 (07:29→14:22)
[2016-06-13] MEDS: IPRATROPIUM BROM 0.5 MG/2.5ML INH SOL NEB SCH ×3 (07:29→14:22)
[2016-06-13 08:51] VITALS: BP 126/56
[2016-06-13] MEDS: LEVOFLOXACIN 500 MG TAB PO SCH (09:43)
[2016-06-13] MEDS: ENOXAPARIN SOD 40 MG/0.4 ML SYRINGE SC SCH (09:44)
[2016-06-13] MEDS: DILTIAZEM HCL 120MG ER CAP PO SCH (09:45)
[2016-06-13] MEDS: CITALOPRAM HYDROBR 20 MG TAB PO SCH (09:46)
[2016-06-13] MEDS: MONTELUKAST SODIUM 10 MG TAB PO SCH (09:46)
[2016-06-13] MEDS ORDERED: predniSONE 20 MG TAB PO SCH (10:00)
[2016-06-13] MEDS ORDERED: FLUCONAZOLE 100 MG TAB PO SCH (10:00)
[2016-06-13] MEDS: BUDESONIDE (INHALATION) 0.5 MG/2 ML NEB NEB SCH (10:52)
[2016-06-13 12:45] VITALS: BP 112/64
[2016-06-13] MEDS: SODIUM CHLORIDE 0.9% 1,000 ML IV SCH (12:51)
[2016-06-13 17:03] VITALS: BP 136/74
[2016-06-13 17:40] VITALS: BP 136/74
[2016-06-13] MEDS: RIVAROXABAN 20 MG TAB PO SCH (18:00)
== END 2016-06-13 18:28 | disposition home or self-care (01) | DRG 368 ==
LOC: TELE-CENTR 16:38
PROVIDERS: ADMIT Internal Medicine Pulmonary Disease; ATTEND Internal Medicine Pulmonary Disease
PROC: 0DB58ZX Excision of Esophagus, Via Natural or Artificial Opening Endoscopic, Diagnostic (ICD-10-PCS; principal; 2016-06-10 12:52)
DX: B37.81 Candidal esophagitis (principal); E43 Unspecified severe protein-calorie malnutrition; J44.1 Chronic obstructive pulmonary disease with (acute) exacerbation; J45.901 Unspecified asthma with (acute) exacerbation; E11.9 Type 2 diabetes mellitus without complications; E03.9 Hypothyroidism, unspecified; I48.91 Unspecified atrial fibrillation; R13.12 Dysphagia, oropharyngeal phase; R07.89 Other chest pain; B37.3 Candidiasis of vulva and vagina; R32 Unspecified urinary incontinence; F32.9 Major depressive disorder, single episode, unspecified; Z90.710 Acquired absence of both cervix and uterus; Z90.49 Acquired absence of other specified parts of digestive tract; Z88.6 Allergy status to analgesic agent; Z88.8 Allergy status to other drugs, medicaments and biological substances; Z82.3 Family history of stroke; Z83.3 Family history of diabetes mellitus; Z82.49 Family history of ischemic heart disease and other diseases of the circulatory system; Z86.718 Personal history of other venous thrombosis and embolism; Z86.73 Personal history of transient ischemic attack (TIA), and cerebral infarction without residual deficits; Z79.4 Long term (current) use of insulin; Z79.899 Other long term (current) drug therapy
CPT/HCPCS: 36415; 71010; 71020; 80053; 82962; 83036; 85025; 85049; 85610; 85730; 87070; 87081; 87205; 87400; 94640; J1815; J2250; J3010; J3490

== ENCOUNTER 2016-08-11 15:39 | Observation (INO) | payer MEDICARE, OTHER ==
[~2016-08-11] VITALS: Ht 172.7 cm; Wt 93.4 kg
[2016-08-11 16:35] LABS: Basophils # (auto) 0 uL; Basophils % (auto) 0.3 % (0.0-2.0); Eosinophils # (auto) 0.1 uL; Eosinophils % (auto) 1.5 % (0.0-7.0); Hematocrit 38.8 % (36.0-46.0); Hemoglobin 12.8 g/dL (12.2-16.2); Lymphocytes # (auto) 1.4 uL; Lymphocytes % (auto) 17.9 % (10.0-50.0); Mean Corpuscular Hemoglobin 27.8 pg (28.0-32.0); Mean Platelet Volume 8.6 fL (7.4-10.4); Monocytes # (auto) 0.5 uL; Monocytes % (auto) 7.1 % (0.0-12.0); Neutrophils # (auto) 5.6 uL; Neutrophils % (auto) 73.2 % (37.0-80.0); Platelet Count (auto) 277 10^3/uL (140-450); Red Cell Distribution Width 17.5 % (11.6-16.0); White Blood Cell 7.6 10^3/uL (4.4-10.8)
[2016-08-11 16:52] LABS: INR 0.97 (0.9-1.15); Partial Thromboplastin Time 27.1 sec (22.64-33.71)
[2016-08-11 16:59] LABS: Alkaline Phosphatase 83 U/L (45-117); Anion Gap 7 (5-15); Aspartate Aminotransferase 19 U/L (15-37); BUN/Creatinine Ratio 19.8; Bilirubin, Total 0.3 mg/dL (0.2-1.0); Blood Urea Nitrogen 16 mg/dL (7-18); Calcium 8.4 mg/dL (8.5-10.1); Carbon Dioxide 30 mmol/L (21-32); Chloride 108 mmol/L (98-107); GFR African American 89 mL/min; GFR Non-African American 74 mL/min; Glucose 247 mg/dL (74-106); Potassium 4.4 mmol/L (3.5-5.1); Sodium 145 mmol/L (136-145); Total Protein 6.5 g/dL (6.4-8.2)
[2016-08-12] MEDS ORDERED: ALBUTEROL SULF 2.5 MG/0.5ML(0.5%) NEB SOLN NEB STA (05:10)
[2016-08-12] MEDS ORDERED: IPRATROPIUM BROM 0.5 MG/2.5ML INH SOL NEB ONE (05:15)
[2016-08-12] MEDS ORDERED: metroNIDAZOLE 500 MG TAB PO ONE (07:15)
[2016-08-12] MEDS ORDERED: cefTRIAXone 1GM/50ML D5W 50 ML IV ONE (07:15)
[2016-08-12 07:18] LABS: Urine Bilirubin Negative (Negative); Urine Blood Negative /uL (Negative); Urine Color Yellow (Yellow); Urine Glucose TRACE mg/dL (Normal); Urine Ketone Negative (Negative); Urine Mucus FEW (None Seen); Urine Nitrite Negative (Negative); Urine RBC <1 /hpf (0 - 4); Urine Squamous Epithelial Cell FEW /hpf (<5); Urine Urobilinogen Normal (Negative); Urine pH 5.5 (5.0-8.0)
[2016-08-12 08:01] VITALS: BP 103/51
== END 2016-08-12 11:46 | disposition left against medical advice (07) | DRG 603 ==
LOC: ER 15:40 → UNDOADMOB 15:41 → OVERFLOW 15:41 → ER 23:26 → OVERFLOW 08-12 07:28 → ER 08-12 11:46 → UNDODISOB 08-12 11:46
PROVIDERS: ADMIT Emergency Medicine; ATTEND Emergency Medicine
DX: L03.115 Cellulitis of right lower limb (principal); J44.1 Chronic obstructive pulmonary disease with (acute) exacerbation; I10 Essential (primary) hypertension; E11.9 Type 2 diabetes mellitus without complications; F17.210 Nicotine dependence, cigarettes, uncomplicated; Z83.3 Family history of diabetes mellitus; Z90.49 Acquired absence of other specified parts of digestive tract
CPT/HCPCS: 36415; 71010; 80053; 81001; 84484; 85025; 85610; 85730; 93005; 94640; 96365; 99285; G0378; J0696

== ENCOUNTER 2016-08-31 13:22 | Inpatient (IN) | payer OTHER ==
[~2016-08-31] VITALS: Ht 172.7 cm; Wt 94.9 kg
[2016-08-31 14:26] LABS: Basophils # (auto) 0 uL; Basophils % (auto) 0.5 % (0.0-2.0); Eosinophils # (auto) 0.2 uL; Eosinophils % (auto) 1.8 % (0.0-7.0); Hematocrit 43.2 % (36.0-46.0); Hemoglobin 14.1 g/dL (12.2-16.2); Lymphocytes # (auto) 1.5 uL; Lymphocytes % (auto) 15.4 % (10.0-50.0); Mean Corpuscular Hemoglobin 27.4 pg (28.0-32.0); Mean Corpuscular Hgb Conc. 32.8 g/dL (32.0-36.0); Mean Corpuscular Volume 83.6 fL (80.0-100.0); Mean Platelet Volume 8.6 fL (7.4-10.4); Monocytes # (auto) 0.9 uL; Monocytes % (auto) 9.4 % (0.0-12.0); Neutrophils % (auto) 72.9 % (37.0-80.0); Platelet Count (auto) 301 10^3/uL (140-450); White Blood Cell 9.6 10^3/uL (4.4-10.8)
[2016-08-31 14:51] LABS: Albumin 3.2 g/dL (3.4-5.0); Anion Gap 8 (5-15); Aspartate Aminotransferase 21 U/L (15-37); BUN/Creatinine Ratio 17.6; Blood Urea Nitrogen 15 mg/dL (7-18); Calcium 9.2 mg/dL (8.5-10.1); Carbon Dioxide 33 mmol/L (21-32); Chloride 98 mmol/L (98-107); GFR African American 85 mL/min; GFR Non-African American 70 mL/min; Glucose 311 mg/dL (74-106); Potassium 3.6 mmol/L (3.5-5.1); Sodium 139 mmol/L (136-145)
[2016-08-31 14:57] LABS: Alkaline Phosphatase 82 U/L (45-117); Bilirubin, Total 0.3 mg/dL (0.2-1.0)
[2016-08-31 15:01] LABS: B-Type Natriuretic Peptide 144.24 pg/mL (0-100)
[2016-08-31 15:02] LABS: Temperature: 23.4 C (20.0-25.0)
[2016-08-31] MEDS ORDERED: SODIUM CHLORIDE 0.9% 1,000 ML IV ONE (16:16)
[2016-08-31] MEDS ORDERED: prednisoLONE 15 MG/5 ML ORAL UD PO ONE (20:30)
[2016-08-31] MEDS ORDERED: IOHEXOL 350 MG/ML 100ML IJ ONE (21:12)
[2016-08-31] MEDS ORDERED: ACETAMINOPHEN 325 MG TAB PO PRN (21:15)
[2016-08-31] MEDS ORDERED: ONDANSETRON HCL 4 MG/2 ML VIAL IV PRN (21:15)
[2016-08-31] MEDS ORDERED: DEXTROSE (50%) 50ML SYRG IV PRN (21:15)
[2016-08-31] MEDS ORDERED: HYDROcodone-ACET 5/325MG TAB PO PRN (21:15)
[2016-08-31] MEDS ORDERED: TEMAZEPAM 15 MG CAP PO PRN (21:15)
[2016-08-31 22:00] VITALS: BP 118/82
[2016-08-31 22:20] VITALS: BP 118/82
[2016-08-31] MEDS: FAMOTIDINE 20 MG TAB PO SCH (22:20)
[2016-08-31] MEDS: predniSONE 5 MG TAB PO SCH (22:20)
[2016-09-01] VITALS (7 sets, daily range): BP systolic 108–144; BP diastolic 59–82
[2016-09-01] MEDS: ACCU-CHEK COMFORT CURVE STRIP VI SCH ×5 (00:14→23:58)
[2016-09-01] MEDS: InsuLIN REG 1unit/0.01ml Soln (100units/ml) SC SCH ×5 (00:23→23:59)
[2016-09-01] MEDS: LEVOTHYROXINE SODIUM 112 MCG TAB PO SCH (06:25)
[2016-09-01 06:26] LABS: Basophils # (auto) 0 uL; Basophils % (auto) 0.5 % (0.0-2.0); Eosinophils # (auto) 0.1 uL; Eosinophils % (auto) 1.2 % (0.0-7.0); Hematocrit 40.7 % (36.0-46.0); Hemoglobin 13.5 g/dL (12.2-16.2); Lymphocytes # (auto) 1.2 uL; Lymphocytes % (auto) 12.9 % (10.0-50.0); Mean Corpuscular Hemoglobin 27.8 pg (28.0-32.0); Mean Corpuscular Hgb Conc. 33.1 g/dL (32.0-36.0); Mean Corpuscular Volume 83.8 fL (80.0-100.0); Mean Platelet Volume 8.8 fL (7.4-10.4); Monocytes # (auto) 0.6 uL; Monocytes % (auto) 6.6 % (0.0-12.0); Neutrophils # (auto) 7.2 uL; Neutrophils % (auto) 78.8 % (37.0-80.0); Platelet Count (auto) 294 10^3/uL (140-450); White Blood Cell 9.2 10^3/uL (4.4-10.8)
[2016-09-01 06:40] LABS: Potassium 4.1 mmol/L (3.5-5.1)
[2016-09-01 06:50] LABS: Albumin 3.1 g/dL (3.4-5.0); BUN/Creatinine Ratio 19.2; Calcium 8.7 mg/dL (8.5-10.1)
[2016-09-01 06:57] LABS: Bilirubin, Total 0.3 mg/dL (0.2-1.0); Total Protein 6.6 g/dL (6.4-8.2)
[2016-09-01] MEDS ORDERED: GABAPENTIN 300 MG CAP PO SCH (10:00)
[2016-09-01] MEDS: ALBUTEROL SULF 2.5 MG/0.5ML(0.5%) NEB SOLN NEB PRN ×2 (10:02→19:14)
[2016-09-01] MEDS: IPRATROPIUM BROM 0.5 MG/2.5ML INH SOL NEB PRN ×2 (10:02→19:14)
[2016-09-01] MEDS: CITALOPRAM HYDROBR 20 MG TAB PO SCH (10:34)
[2016-09-01] MEDS: predniSONE 5 MG TAB PO SCH ×2 (10:34→21:26)
[2016-09-01] MEDS: ENOXAPARIN SOD 40 MG/0.4 ML SYRINGE SC SCH (10:35)
[2016-09-01] MEDS: FAMOTIDINE 20 MG TAB PO SCH ×2 (10:35→21:27)
[2016-09-01] MEDS ORDERED: FLUCONAZOLE 200MG/100ML 100 ML IV ONE (15:15)
[2016-09-01] MEDS: NYSTATIN (MOUTH-THROAT) 500,000 UNITS/5 ML SUSP MT SCH ×2 (18:03→21:26)
[2016-09-01] MEDS: PRAMIPEXOLE DIHYDROCHLORIDE MO 0.25 MG TAB PO SCH (21:26)
[2016-09-01] MEDS: DOXYCYCLINE 100 MG TAB/CAP PO SCH (21:27)
[2016-09-01] MEDS: GABAPENTIN 300 MG CAP PO SCH (21:27)
[2016-09-01 23:08] LABS: Urine Bilirubin Negative (Negative); Urine Blood Negative /uL (Negative); Urine Color Yellow (Yellow); Urine Ketone Negative (Negative); Urine Nitrite Negative (Negative); Urine RBC 1 /hpf (0 - 4); Urine Urobilinogen Normal (Negative); Urine pH 6.5 (5.0-8.0)
[2016-09-01 23:09] LABS: Urine Glucose 4+ mg/dL (Normal)
[2016-09-02 05:00] VITALS: BP 128/76
[2016-09-02] MEDS: InsuLIN REG 1unit/0.01ml Soln (100units/ml) SC SCH ×4 (06:03→23:39)
[2016-09-02] MEDS: NYSTATIN (MOUTH-THROAT) 500,000 UNITS/5 ML SUSP MT SCH ×4 (06:03→21:55)
[2016-09-02] MEDS: ACCU-CHEK COMFORT CURVE STRIP VI SCH ×4 (06:03→23:26)
[2016-09-02] MEDS: LEVOTHYROXINE SODIUM 112 MCG TAB PO SCH (06:33)
[2016-09-02 06:37] LABS: BUN/Creatinine Ratio 17.3; Calcium 8.3 mg/dL (8.5-10.1); Magnesium 2.1 mg/dL (1.6-2.6); Potassium 4.1 mmol/L (3.5-5.1)
[2016-09-02 08:41] VITALS: BP 138/76
[2016-09-02] MEDS: predniSONE 5 MG TAB PO SCH (09:44)
[2016-09-02] MEDS: CITALOPRAM HYDROBR 20 MG TAB PO SCH (09:44)
[2016-09-02] MEDS: FAMOTIDINE 20 MG TAB PO SCH ×2 (09:44→21:56)
[2016-09-02] MEDS: DOXYCYCLINE 100 MG TAB/CAP PO SCH (09:44)
[2016-09-02] MEDS: ENOXAPARIN SOD 40 MG/0.4 ML SYRINGE SC SCH (09:45)
[2016-09-02] MEDS ORDERED: FLUCONAZOLE 200MG/100ML 100 ML IV SCH (10:00)
[2016-09-02 12:24] VITALS: BP 140/80
[2016-09-02] MEDS: IPRATROPIUM BROM 0.5 MG/2.5ML INH SOL NEB PRN (15:35)
[2016-09-02] MEDS: ALBUTEROL SULF 2.5 MG/0.5ML(0.5%) NEB SOLN NEB PRN (15:36)
[2016-09-02 16:18] VITALS: BP 144/75
[2016-09-02] MEDS: IPRATROPIUM BROM 0.5 MG/2.5ML INH SOL NEB SCH (19:02)
[2016-09-02] MEDS: ALBUTEROL SULF 2.5 MG/0.5ML(0.5%) NEB SOLN NEB SCH (19:02)
[2016-09-02] MEDS: GABAPENTIN 300 MG CAP PO SCH (21:55)
[2016-09-02] MEDS: PRAMIPEXOLE DIHYDROCHLORIDE MO 0.25 MG TAB PO SCH (21:55)
[2016-09-02 22:04] VITALS: BP 139/62
[2016-09-03] VITALS (7 sets, daily range): BP systolic 123–138; BP diastolic 68–72
[2016-09-03] MEDS: LEVOTHYROXINE SODIUM 112 MCG TAB PO SCH (06:22)
[2016-09-03] MEDS: NYSTATIN (MOUTH-THROAT) 500,000 UNITS/5 ML SUSP MT SCH ×4 (06:22→21:17)
[2016-09-03] MEDS: ACCU-CHEK COMFORT CURVE STRIP VI SCH ×4 (06:22→23:18)
[2016-09-03] MEDS: InsuLIN REG 1unit/0.01ml Soln (100units/ml) SC SCH ×4 (06:27→23:18)
[2016-09-03] MEDS: ALBUTEROL SULF 2.5 MG/0.5ML(0.5%) NEB SOLN NEB SCH ×3 (07:02→19:19)
[2016-09-03] MEDS: IPRATROPIUM BROM 0.5 MG/2.5ML INH SOL NEB SCH ×3 (07:02→19:19)
[2016-09-03] MEDS: ENOXAPARIN SOD 40 MG/0.4 ML SYRINGE SC SCH (09:35)
[2016-09-03] MEDS: FAMOTIDINE 20 MG TAB PO SCH ×2 (09:35→21:19)
[2016-09-03] MEDS: FLUCONAZOLE 100 MG TAB PO SCH (09:36)
[2016-09-03] MEDS: CITALOPRAM HYDROBR 20 MG TAB PO SCH (09:39)
[2016-09-03] MEDS: traMADol HCL 50 MG TAB PO PRN ×2 (13:53→20:59)
[2016-09-03] MEDS: GABAPENTIN 300 MG CAP PO SCH (21:18)
[2016-09-03] MEDS: PRAMIPEXOLE DIHYDROCHLORIDE MO 0.25 MG TAB PO SCH ×2 (21:19→21:21)
[2016-09-04] VITALS (7 sets, daily range): BP systolic 119–144; BP diastolic 58–79
[2016-09-04] MEDS: ALBUTEROL SULF 2.5 MG/0.5ML(0.5%) NEB SOLN NEB SCH ×4 (00:36→18:57)
[2016-09-04] MEDS: IPRATROPIUM BROM 0.5 MG/2.5ML INH SOL NEB SCH ×4 (00:36→18:57)
[2016-09-04] MEDS: traMADol HCL 50 MG TAB PO PRN (03:32)
[2016-09-04] MEDS: NYSTATIN (MOUTH-THROAT) 500,000 UNITS/5 ML SUSP MT SCH ×4 (05:38→21:46)
[2016-09-04] MEDS: ACCU-CHEK COMFORT CURVE STRIP VI SCH ×4 (05:59→21:47)
[2016-09-04] MEDS: LEVOTHYROXINE SODIUM 112 MCG TAB PO SCH (06:16)
[2016-09-04] MEDS: InsuLIN REG 1unit/0.01ml Soln (100units/ml) SC SCH ×4 (06:16→21:47)
[2016-09-04] MEDS: CITALOPRAM HYDROBR 20 MG TAB PO SCH (10:33)
[2016-09-04] MEDS: ENOXAPARIN SOD 40 MG/0.4 ML SYRINGE SC SCH (10:33)
[2016-09-04] MEDS: FAMOTIDINE 20 MG TAB PO SCH ×2 (10:33→21:47)
[2016-09-04] MEDS: FLUCONAZOLE 100 MG TAB PO SCH (10:33)
[2016-09-04] MEDS: methylPREDNISolone SOD SUCC 40 MG/ML VL IV SCH (21:46)
[2016-09-04] MEDS: GABAPENTIN 100 MG CAP PO SCH (21:47)
[2016-09-04] MEDS: PRAMIPEXOLE DIHYDROCHLORIDE MO 0.25 MG TAB PO SCH (21:47)
[2016-09-05 05:00] VITALS: BP 140/83
[2016-09-05] MEDS: NYSTATIN (MOUTH-THROAT) 500,000 UNITS/5 ML SUSP MT SCH ×4 (06:07→22:15)
[2016-09-05] MEDS: LEVOTHYROXINE SODIUM 112 MCG TAB PO SCH (06:07)
[2016-09-05] MEDS: GABAPENTIN 100 MG CAP PO SCH ×2 (06:08→22:16)
[2016-09-05] MEDS: ACCU-CHEK COMFORT CURVE STRIP VI SCH ×3 (06:26→17:51)
[2016-09-05] MEDS: InsuLIN REG 1unit/0.01ml Soln (100units/ml) SC SCH ×3 (06:27→17:51)
[2016-09-05 08:00] VITALS: BP 112/71
[2016-09-05] MEDS: ALBUTEROL SULF 2.5 MG/0.5ML(0.5%) NEB SOLN NEB SCH ×4 (08:05→18:45)
[2016-09-05] MEDS: IPRATROPIUM BROM 0.5 MG/2.5ML INH SOL NEB SCH ×4 (08:05→18:45)
[2016-09-05 08:29] VITALS: BP 112/71
[2016-09-05] MEDS: methylPREDNISolone SOD SUCC 40 MG/ML VL IV SCH ×2 (10:19→22:15)
[2016-09-05] MEDS: ENOXAPARIN SOD 40 MG/0.4 ML SYRINGE SC SCH (10:19)
[2016-09-05] MEDS: CITALOPRAM HYDROBR 20 MG TAB PO SCH (10:20)
[2016-09-05] MEDS: FAMOTIDINE 20 MG TAB PO SCH ×2 (10:20→22:16)
[2016-09-05] MEDS: FLUCONAZOLE 100 MG TAB PO SCH (10:20)
[2016-09-05 13:00] VITALS: BP 129/64
[2016-09-05 16:48] VITALS: BP 126/77
[2016-09-05 22:03] VITALS: BP 140/73
[2016-09-05] MEDS: PRAMIPEXOLE DIHYDROCHLORIDE MO 0.25 MG TAB PO SCH (22:16)
[2016-09-06] VITALS (9 sets, daily range): BP systolic 106–145; BP diastolic 43–88
[2016-09-06] MEDS: ALBUTEROL SULF 2.5 MG/0.5ML(0.5%) NEB SOLN NEB SCH ×4 (00:35→19:02)
[2016-09-06] MEDS: IPRATROPIUM BROM 0.5 MG/2.5ML INH SOL NEB SCH ×4 (00:35→19:01)
[2016-09-06] MEDS: ACCU-CHEK COMFORT CURVE STRIP VI SCH ×5 (06:00→21:47)
[2016-09-06] MEDS: InsuLIN REG 1unit/0.01ml Soln (100units/ml) SC SCH ×3 (06:00→17:58)
[2016-09-06] MEDS: NYSTATIN (MOUTH-THROAT) 500,000 UNITS/5 ML SUSP MT SCH ×4 (06:30→21:44)
[2016-09-06] MEDS: LEVOTHYROXINE SODIUM 112 MCG TAB PO SCH (06:30)
[2016-09-06] MEDS: GABAPENTIN 100 MG CAP PO SCH ×2 (06:30→21:45)
[2016-09-06] MEDS: FAMOTIDINE 20 MG TAB PO SCH ×2 (11:23→21:45)
[2016-09-06] MEDS: methylPREDNISolone SOD SUCC 40 MG/ML VL IV SCH ×2 (11:23→21:44)
[2016-09-06] MEDS: ENOXAPARIN SOD 40 MG/0.4 ML SYRINGE SC SCH (11:23)
[2016-09-06] MEDS: FLUCONAZOLE 100 MG TAB PO SCH (11:23)
[2016-09-06] MEDS: CITALOPRAM HYDROBR 20 MG TAB PO SCH (11:23)
[2016-09-06] MEDS ORDERED: DEXTROSE (50%) 50ML SYRG IV PRN (12:00)
[2016-09-06] MEDS: PRAMIPEXOLE DIHYDROCHLORIDE MO 0.25 MG TAB PO SCH (21:45)
[2016-09-06] MEDS ORDERED: InsuLIN REG 1unit/0.01ml Soln (100units/ml) SC SCH (22:00)
[2016-09-07] VITALS (7 sets, daily range): BP systolic 144–155; BP diastolic 56–86
[2016-09-07] MEDS: NYSTATIN (MOUTH-THROAT) 500,000 UNITS/5 ML SUSP MT SCH ×2 (06:36→12:25)
[2016-09-07] MEDS: GABAPENTIN 100 MG CAP PO SCH (06:36)
[2016-09-07] MEDS: LEVOTHYROXINE SODIUM 112 MCG TAB PO SCH (06:36)
[2016-09-07] MEDS: ACCU-CHEK COMFORT CURVE STRIP VI SCH ×2 (06:37→11:30)
[2016-09-07] MEDS: InsuLIN REG 1unit/0.01ml Soln (100units/ml) SC SCH ×2 (06:37→12:24)
[2016-09-07] MEDS: IPRATROPIUM BROM 0.5 MG/2.5ML INH SOL NEB SCH ×3 (07:18→13:27)
[2016-09-07] MEDS: ALBUTEROL SULF 2.5 MG/0.5ML(0.5%) NEB SOLN NEB SCH ×3 (07:18→13:27)
[2016-09-07] MEDS: CITALOPRAM HYDROBR 20 MG TAB PO SCH (10:01)
[2016-09-07] MEDS: methylPREDNISolone SOD SUCC 40 MG/ML VL IV SCH (10:01)
[2016-09-07] MEDS: FLUCONAZOLE 100 MG TAB PO SCH (10:01)
[2016-09-07] MEDS: ENOXAPARIN SOD 40 MG/0.4 ML SYRINGE SC SCH (10:02)
[2016-09-07] MEDS: FAMOTIDINE 20 MG TAB PO SCH (10:02)
[2016-09-07] MEDS ORDERED: NYS5LQ PO (14:30)
[2016-09-07] MEDS ORDERED: INSUINJ2 SC ×2 (14:30)
[2016-09-07] MEDS: PRAMIPEXOLE DIHYDROCHLORIDE MO 0.25 MG TAB PO SCH (16:14)
== END 2016-09-07 16:04 | disposition home or self-care (01) | DRG 189 ==
LOC: ER 13:22 → OVERFLOW 13:23 → WEST WING 22:10 → TELE-WESTW 09-01 16:28 → WEST WING 09-02 00:15
PROVIDERS: ADMIT Internal Medicine; ATTEND Nurse Practitioner Acute Care
DX: J96.00 Acute respiratory failure, unspecified whether with hypoxia or hypercapnia (principal); E43 Unspecified severe protein-calorie malnutrition; J44.0 Chronic obstructive pulmonary disease with (acute) lower respiratory infection; B37.0 Candidal stomatitis; J45.901 Unspecified asthma with (acute) exacerbation; J44.1 Chronic obstructive pulmonary disease with (acute) exacerbation; J20.9 Acute bronchitis, unspecified; I70.0 Atherosclerosis of aorta; E11.65 Type 2 diabetes mellitus with hyperglycemia; E03.9 Hypothyroidism, unspecified; G25.81 Restless legs syndrome; J45.909 Unspecified asthma, uncomplicated; F17.210 Nicotine dependence, cigarettes, uncomplicated; I11.9 Hypertensive heart disease without heart failure; E66.01 Morbid (severe) obesity due to excess calories; M25.50 Pain in unspecified joint; Z68.31 Body mass index [BMI] 31.0-31.9, adult; Z83.3 Family history of diabetes mellitus; Z82.3 Family history of stroke; Z90.49 Acquired absence of other specified parts of digestive tract; Z82.5 Family history of asthma and other chronic lower respiratory diseases; Z90.710 Acquired absence of both cervix and uterus; Z82.49 Family history of ischemic heart disease and other diseases of the circulatory system; Z88.8 Allergy status to other drugs, medicaments and biological substances; Z88.5 Allergy status to narcotic agent; Z23 Encounter for immunization
CPT/HCPCS: 36415; 71020; 71275; 80048; 80053; 81001; 82962; 83036; 83735; 83880; 84443; 84484; 85025; 85379; 85652; 86038; 86141; 86200; 86812; 93005; 93971; 94640; 94761; 97001; J1450; J1815